=== PATIENT | female | born 1965 | race American Indian/Alaskan Native ===

== ENCOUNTER 2019-07-21 09:51 | Outpatient (CLI) | payer BC ==
--- NOTE | 2019-07-21 15:34 | Mammography Report ---
DIGITAL SCREENING MAMMOGRAM WITH CAD, 07/21/2019 INDICATION: Routine screening mammography. TECHNIQUE: Digital bilateral 2D mammography was obtained in the craniocaudal and mediolateral obliq ue projections. This examination was interpreted with the benefit of Computer-Aided Detection analysi s. COMPARISON: None available. However, she indicated that she had a prior mammogram at [facility]. FINDINGS: Breast Density: The breasts are heterogeneously dense, which may obscure small masses. A right asymmetry on the CC view requires comparison with a prior mammogram or additional imaging. No architectural distortion or suspicious calcifications of the right breast. There is no evidence of d ominant mass, suspicious calcifications or architectural distortion in the left breast. IMPRESSION: Comparison with a previous mammogram is recommended. We will attempt to obtain a prior mammogram for comparison. If we do not obtain a prior mammogram within 30 days, a revised report will be issued rec ommending a recall for additional imaging. Please be advised that the patient should not schedule an appointment for return until adequate time (at least 2 weeks) has passed for us to obtain the prior m ammogram. Follow up recommendation: Obtain prior study for comparison Category 0: Incomplete. Needs additional imaging evaluation and/or prior mammograms for comparison. A "normal" or negative report should not discourage follow up or biopsy of a clinically significant f inding. A written summary of these findings will be mailed to the patient. The patient will be entered into a mammography reporting system which will generate a reminder letter for the patient's next appointmen t at the appropriate interval. The [employer] recommends yearly mammograms starting at age 40 and continuing as l fernando as a woman is in good health. Breast MRI is recommended for women with an approximate 20-25% or greater lifetime risk of breast cancer, including women with a strong family history of breast or ova lasha cancer or who have been treated for Hodgkin's disease. Signer Name: Nigel Burgos MD Signed: 07/21/2019 3:29 PM Workstation Name: [id number]
== END 2019-07-21 09:52 | disposition home or self-care (01) ==
LOC: SPVWC 09:51
PROVIDERS: ATTEND Obstetrics & Gynecology
DX: Z12.31 Encounter for screening mammogram for malignant neoplasm of breast (principal)
CPT/HCPCS: 77067

== ENCOUNTER 2019-08-07 14:47 | Outpatient (CLI) | payer BC ==
[2019-08-07 15:08] LABS: Hematocrit 34.8 % (30.3-42.9); Hemoglobin 12.4 gm/dl (10.1-14.3); Mean Corpuscular HGB Conc 36 % (30-34); Mean Corpuscular Volume 85 fl (79-97); Platelet Count 349 K/mm3 (140-440); Red Blood Count 4.11 M/mm3 (3.65-5.03)
[2019-08-07 15:32] LABS: Alanine Aminotransferase 20 units/L (7-56); Albumin 4.2 g/dL (3.9-5); BUN/Creatinine Ratio 27; Blood Urea Nitrogen 16 mg/dL (7-17); Calcium 9.1 mg/dL (8.4-10.2); Hemolysis Index 1
== END 2019-08-07 14:48 | disposition home or self-care (01) ==
LOC: LAB 14:47
PROVIDERS: ATTEND Specialist
DX: D35.2 Benign neoplasm of pituitary gland (principal)
CPT/HCPCS: 36415; 80053; 84146; 84436; 84443; 84479; 84480; 85027